=== PATIENT | female | born 1945 | race Caucasian/White ===

== ENCOUNTER 2025-04-27 11:16 | Day surgery (SDC) | payer MEDICARE, BC ==
[~2025-04-27] VITALS: Ht 152.4 cm; Wt 84.6 kg
[2025-04-27] VITALS (7 sets, daily range): BP systolic 134–155; BP diastolic 39–53; PULSE 62–85; RESP 16; TEMP 97.9; O2SAT 92–98
[~2025-04-27 11:16] MED LIST: CHOL500044 PO; EZET10TA80 PO; LOSA25TA41 PO; MULT-1173 PO; OMEG-166 PO; ROSU40TA89 PO; [UNRECOGNIZED DRUG - CODE]
[2025-04-27 12:13] LABS: MEAN PLATELET VOLUME 8.1 FL (7.4-10.4); RED CELL DISTRIBUTION WIDTH 13.1 % (11.5-14.5)
--- NOTE | 2025-04-27 12:14 | ELECTROCARDIOGRAPH REPORT ---
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 AIMEE Finn Measurements Intervals [place] Rate: 67 P: 72 FL: 159 QRS: 9 QRSD: 93 T: 20 QT: 416 QTc: 439 Interpretive Statements Sinus rhythm Minimal ST elevation, anterior leads Electronically Signed On 04-27-2025 12:40:[address] AIMEE Finn Please click the below link to view image of tracing.
[2025-04-27 12:18] LABS: CREATININE 1.04 MG/DL (0.40-0.90); TOTAL CARBON DIOXIDE 28.8 MMOL/L (24-32); eCRCL 32 ML/MIN; eGFR 51 ML/MIN
[2025-04-27 12:22] LABS: APTT 26 SECONDS (22-32); INR 1.0 INR
[2025-04-27] MEDS ORDERED: midazolam 1 mg/ML 2ml injection ONE (14:17)
[2025-04-27] MEDS ORDERED: fentaNYL/PF 50MCG/1 ML 2ML syringe ONE (14:17)
[2025-04-27] MEDS ORDERED: LIDOcaine 1% (10mg/ml) 2ml vial ONE (14:17)
[2025-04-27] MEDS ORDERED: verapamil 2.5 mg/ml inj IV ONE (14:17)
[2025-04-27] MEDS ORDERED: heparin 1,000unit/ml 10ml vial 10 ML ONE (14:18)
[2025-04-27] MEDS ORDERED: nitroGLYCERIN 500mcg/5mL D5W 5 ML IV ONE (14:23)
--- NOTE | 2025-05-13 20:11 | CARDIOLOGY REPORT ---
DATE OF SERVICE: 04/27/2025 DICTATING PHYSICIAN: Miriam Bae MD CARDIAC CATHETERIZATION REPORT DATE OF STUDY: 04/27/2025 PROCEDURES: * Right heart catheterization. * Selective coronary angiography. INDICATION: Aortic stenosis. PHYSICIAN: Miriam Bae MD DESCRIPTION OF PROCEDURE: After informed consent was obtained, the patient was brought to the lab where she was prepped and draped in the usual sterile fashion. A 6-Libyan sheath was inserted into the right radial artery and a 6-[place] sheath into the right brachial vein. Thereafter, using a [place] Ebony catheter, the catheter was advanced via the brachial vein into the outflow tract and into a wedge position where pulmonary capillary wedge pressure and right-sided pressures were obtained. The [place] Ebony catheter was then removed. Next, using a TIG catheter, the catheter was advanced over a 0.035 wire into the ascending aorta. The wire removed. The catheter manipulated and selective right and left coronary angiography performed. HEMODYNAMICS: For the patient's hemodynamics, please refer to the event log. The patient's pulmonary capillary wedge pressure is 8/4 with a mean of 0 mmHg. Pulmonary arterial pressure is 23/0 with a mean of 9 mmHg. Right ventricular pressure was 36/1 with a mean of 5 mmHg. Right atrial pressure was 6/3 with a mean of 2 mmHg. The patient's aortic saturation is 93%. FINDINGS: The left main coronary artery is a normal caliber vessel free of significant disease. The left anterior descending coronary artery is a medium caliber vessel with a 30% mid vessel stenosis. 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 The circumflex coronary artery is a normal caliber vessel free of significant disease. The right coronary artery is a large dominant vessel free of significant disease. IMPRESSION: * Mild luminal irregularities with no significant coronary artery disease by angiography. * Normal right-sided pressures. The patient's mean pulmonary capillary wedge pressure was 11 mmHg and the patient's mean pulmonary arterial pressure 9 mmHg. RECOMMENDATION: Transcatheter aortic valve replacement. Miriam Bae MD TID: [id number] RECEIPT: [id number] /[id number]
== END 2025-04-27 17:30 | disposition home or self-care (01) ==
LOC: SSTAY O 11:16
PROVIDERS: ATTEND Student in an Organized Health Care Education/Training Program
DX: I25.10 Atherosclerotic heart disease of native coronary artery without angina pectoris (principal); I35.0 Nonrheumatic aortic (valve) stenosis; I10 Essential (primary) hypertension; E78.00 Pure hypercholesterolemia, unspecified; Z88.5 Allergy status to narcotic agent; Z79.01 Long term (current) use of anticoagulants
CPT/HCPCS: 36415; 80048; 85025; 85610; 85730; 93005; 93456; 99152; C1751; C1894; J1644; J2003; J2250; J3010; J3490; J7030; Q0163; Q9967; Z7610; 99153